=== PATIENT | male | born 1985 | race American Indian/Alaskan Native ===

== ENCOUNTER 2022-05-08 14:09 | Emergency (ER) | payer OTHER ==
[~2022-05-08] VITALS: Ht 190.5 cm; Wt 129.3 kg
== END 2022-05-08 15:16 | disposition home or self-care (01) ==
LOC: ED 14:09
DX: S61.011A Laceration without foreign body of right thumb without damage to nail, initial encounter (principal); W26.8XXA Contact with other sharp object(s), not elsewhere classified, initial encounter
CPT/HCPCS: 12002; 99282-25